=== PATIENT | male | born 2000 | race African-American/Black ===

== ENCOUNTER 2021-01-22 23:14 | Emergency (ER) | payer SELFPAY ==
[~2021-01-22 23:14] MED LIST: Iopamidol 370 76% 100 ML VIAL ONE
[2021-01-23 01:48] LABS: AST (SGOT) 30 U/L (10-45); Albumin 4.3 g/dL (3.5-5.0); Alkaline Phosphatase 58 U/L (50-130); Anion Gap 15 mmol/L (10-20); BUN (Urea Nitrogen) 9 mg/dL (8.4-21.0); Bilirubin, Total 0.7 mg/dL (0.2-1.2); Calc. Creatinine Clearance 0 mL/min (70-130); Calcium 9.1 mg/dL (7.8-10.44); Carbon Dioxide 24 mmol/L (22-29); Chloride 104 mmol/L (98-107); Glucose 95 mg/dL (70-105); Magnesium 1.7 mg/dL (1.7-2.2); Potassium 3.1 mmol/L (3.5-5.1); Protein, Total 7.3 g/dL (6.0-8.3); Sodium 140 mmol/L (136-145)
[2021-01-23 01:54] LABS: Eosinophils 15 % (0-10); Hemoglobin 15.7 g/dL (14.0-18.0); Lymphocytes 12 % (28-48); MDiff Complete? YES; Manual Diff?? YES; Mean Corpuscular HGB CONC 29.6 g/dL (32.0-36.0); Mean Corpuscular Hemoglobin 27.2 pg (25.0-35.0); Mean Corpuscular Volume 91.8 fL (78.0-98.0); Mean Platelet Volume 12.2 fL (7.4-10.4); Monocytes 13 % (0-4); Neutrophil 59 % (31-61); Platelet Count 174 thou/uL (130-400); Platelet Morphology Comment Appears Adequate; RBC Distribution Width 12.1 % (11.5-14.5); Reactive Lymphocytes 1 % (0-10); Red Blood Cell (RBC) Count 5.78 mill/uL (4.00-5.20); White Blood Cell (WBC) Count 7.8 thou/uL (4.8-10.8)
[2021-01-23 02:17] LABS: ALT (SGPT) 27 U/L (8-55)
[2021-01-23] MEDS ORDERED: Potassium Chloride 20 MEQ TAB ONE ×3 (03:32→03:43)
[2021-01-23] MEDS ORDERED: Albuterol Sulfate 2.5 mg/3 ml Neb ONE (03:53)
[2021-01-23] MEDS ORDERED: predniSONE 20 MG TAB ONE (03:53)
[2021-01-23] MEDS ORDERED: Azithromycin 250 MG TAB ONE (03:53)
== END 2021-01-23 04:46 | disposition home or self-care (01) ==
LOC: NAV ERS 23:14
DX: J42 Unspecified chronic bronchitis (principal); E87.6 Hypokalemia; Z87.891 Personal history of nicotine dependence
CPT/HCPCS: 71045; 71275; 80053; 83605; 83735; 83880; 84484; 85025; 93005; 94760; J7512; J7611; J7620; Q9967

== ENCOUNTER 2021-01-24 20:58 | Emergency (ER) | payer SELFPAY ==
[2021-01-24 21:20] LABS: Bilirubin Negative (Negative); Blood, Urine Negative (Negative); Clarity Clear (Clear); Glucose, Urine (Dipstick) Negative (Negative); Ketone, Urine Negative (Negative); Leukocyte Negative (Negative); Nitrite Negative (Negative); Protein, Urine (Dipstick) Negative (Neg-Trace); Urobilinogen 0.2 mg/dL (Less than 2); pH, Urine 5.5 (5.0-9.0)
[2021-01-24 21:23] LABS: Specific Gravity, Urine 1.026 (1.002-1.036)
[2021-01-27 17:45] LABS: Chlam.trachomatis by PCR,Urine Not Detected (NotDetected)
== END 2021-01-24 21:48 | disposition home or self-care (01) ==
LOC: NAV ERS 20:58
DX: R30.0 Dysuria (principal); Z87.891 Personal history of nicotine dependence
CPT/HCPCS: 81003; 87491; 87591; 99283

== ENCOUNTER 2023-07-10 23:45 | Emergency (ER) | payer SELFPAY ==
[2023-07-10] MEDS ORDERED: Ipratropium/Albuterol 3 ML NEB ONE (23:52)
[2023-07-11] MEDS ORDERED: methylPREDNISolone Sod Succ/PF 125 MG/2 ML VIAL ONE (00:04)
[2023-07-11] MEDS ORDERED: Ondansetron PF 4 MG/2 ML Vial ONE (00:11)
[2023-07-11] MEDS ORDERED: Ipratropium/Albuterol 3 ML NEB ONE (00:49)
== END 2023-07-11 01:17 | disposition home or self-care (01) ==
LOC: NAV ERS 23:45
DX: J45.901 Unspecified asthma with (acute) exacerbation (principal); Z87.891 Personal history of nicotine dependence; Z79.899 Other long term (current) drug therapy
CPT/HCPCS: 94640; 96374; 96375; J2405; J2930; J7620